=== PATIENT | female | born 1955 | race Caucasian/White ===

== ENCOUNTER → 2017-09-12 | Outpatient (REF) ==
[~2017-09-12] MED LIST: ALPRAZOLAM PO; CATAPRES 0.1MG0.1 MG PO; DEMADEX; HYDROCODONE/APAP; LASIX 40MG TABL40 MG PO; LORTAB 10/500 51 TAB PO; METHADONE H10 MG/TAB PO; MICARDIS 40MG40 MG PO; VYTORIN; ZETIA10 MG PO
[2017-09-12 19:07] LABS: THYROID STIMULATING HORMONE 2.45 uIU/mL (0.465-4.680)
== END ==
LOC: ZLAB.WCH 18:18
PROVIDERS: Internal Medicine
DX: Z01.89 Encounter for other specified special examinations (principal)

== ENCOUNTER → 2018-10-12 | Outpatient (REF) | LOC: ZLAB.WCH 16:12 | DX: Z01.89 Encounter for other specified special examinations (principal) ==

== ENCOUNTER → 2019-11-07 | Outpatient (CLI) | payer BC | LOC: MC.RAD 12:59 | DX: N64.89 Other specified disorders of breast (principal) | CPT/HCPCS: G0279 ==